=== PATIENT | female | born 1950 | race Caucasian/White ===

== ENCOUNTER → 2019-01-27 | Outpatient (CLI) | payer MEDICARE, OTHER ==
[~2019-01-27] MED LIST: ALPR0.25 PO; ASPI-231 PO; CHOL20009 PO; FOLI1TAB6 PO; FURO20TA3 PO; LISI-646 PO; METO25TA5 PO; ROSU5TAB5 PO
[2019-01-27 11:50] LABS: Basophils # (auto) 0 uL; Basophils % (auto) 0.6 % (0.0-2.0); Eosinophils # (auto) 0.2 uL; Eosinophils % (auto) 2.5 % (0.0-7.0); Hematocrit 50.6 % (36.0-46.0); Hemoglobin 16.7 g/dL (12.2-16.2); Lymphocytes # (auto) 2.1 uL; Lymphocytes % (auto) 30.4 % (10.0-50.0); Mean Corpuscular Hemoglobin 28.2 pg (28.0-32.0); Mean Corpuscular Volume 85.4 fL (80.0-100.0); Monocytes # (auto) 0.6 uL; Neutrophils # (auto) 3.9 uL; Neutrophils % (auto) 57.5 % (37.0-80.0); Nucleated Red Blood Cells % 0.1 %; Platelet Count (auto) 288 10^3/uL (140-450); Red Blood Cells 5.93 10^6/uL (4.0-5.20); Red Cell Distribution Width 14.7 % (11.8-14.3); White Blood Cell 6.9 10^3/uL (4.4-10.8)
[2019-01-27 13:15] LABS: Calcium 9.7 mg/dL (8.5-10.1); Potassium 4.5 mmol/L (3.5-5.1)
[2019-01-27 13:20] LABS: BUN/Creatinine Ratio 16.3; Bilirubin, Total 0.6 mg/dL (0.2-1.0); Total Protein 7.5 g/dL (6.4-8.2)
== END | disposition home or self-care (01) ==
LOC: LAB 11:13
PROVIDERS: ATTEND Internal Medicine
DX: Z12.11 Encounter for screening for malignant neoplasm of colon (principal); I10 Essential (primary) hypertension; E78.5 Hyperlipidemia, unspecified; R79.89 Other specified abnormal findings of blood chemistry; Z79.899 Other long term (current) drug therapy
CPT/HCPCS: 36415; 80053; 80061; 82274; 82306; 83036; 84443; 85025

== ENCOUNTER → 2019-07-19 | Outpatient (CLI) | payer MEDICARE, OTHER ==
[2019-07-19 10:48] LABS: Potassium 4.9 mmol/L (3.5-5.1)
[2019-07-19 10:49] LABS: Albumin 3.8 g/dL (3.4-5.0); Bilirubin, Total 0.7 mg/dL (0.2-1.0); Calcium 9.2 mg/dL (8.5-10.1)
== END | disposition home or self-care (01) ==
LOC: LAB 08:42
PROVIDERS: ATTEND Internal Medicine
DX: E78.5 Hyperlipidemia, unspecified (principal); I10 Essential (primary) hypertension
CPT/HCPCS: 36415; 80053; 80061

== ENCOUNTER → 2022-07-17 | Outpatient (CLI) | payer MEDICARE, OTHER ==
[~2022-07-17] MED LIST changes: -ASPI-231 PO; +ASPI1TAB20 PO; -LISI-646 PO; +LISI20TA28 PO
[2022-07-17 11:03] LABS: Basophils # (auto) 0 10 ^3/uL (0-0.2); Basophils % (auto) 0.5 % (0.0-2.0); Eosinophils # (auto) 0.3 10 ^3/uL (0-0.8); Eosinophils % (auto) 3.4 % (0.0-7.0); Hematocrit 49.3 % (36.0-46.0); Hemoglobin 16.2 g/dL (12.2-16.2); Lymphocytes # (auto) 1.9 10 ^3/uL (0.4-5.4); Mean Corpuscular Hemoglobin 28.5 pg (28.0-32.0); Mean Corpuscular Hgb Conc. 32.9 g/dL (32.0-36.0); Mean Corpuscular Volume 86.7 fL (80.0-100.0); Monocytes # (auto) 0.8 10 ^3/uL (0-1.3); Monocytes % (auto) 9.7 % (0.0-12.0); Neutrophils # (auto) 5.6 10 ^3/uL (1.6-8.6); Neutrophils % (auto) 64.4 % (37.0-80.0); Nucleated Red Blood Cells % 0.2 %; Red Blood Cells 5.68 10^6/uL (4.0-5.20); Red Cell Distribution Width 13.9 % (11.8-14.3); White Blood Cell 8.6 10^3/uL (4.4-10.8)
[2022-07-17 11:32] LABS: Albumin 3.5 g/dL (3.4-5.0); Calcium 9.3 mg/dL (8.5-10.1); Potassium 5.1 mmol/L (3.5-5.1)
[2022-07-17 11:38] LABS: BUN/Creatinine Ratio 13.1; Bilirubin, Total 0.5 mg/dL (0.2-1.0); Total Protein 6.7 g/dL (6.4-8.2)
== END | disposition home or self-care (01) ==
LOC: LAB 10:40
PROVIDERS: ATTEND Internal Medicine
DX: C50.919 Malignant neoplasm of unspecified site of unspecified female breast (principal); I10 Essential (primary) hypertension; Z12.11 Encounter for screening for malignant neoplasm of colon; Z00.00 Encounter for general adult medical examination without abnormal findings; Z83.3 Family history of diabetes mellitus; Z79.899 Other long term (current) drug therapy
CPT/HCPCS: 36415; 80053; 80061; 83036; 84439; 84443; 85025

== ENCOUNTER 2023-01-01 10:50 | Inpatient (IN) | payer MEDICARE, OTHER ==
[~2023-01-01] VITALS: Ht 162.6 cm; Wt 119.0 kg
[2023-01-01 12:27] LABS: Basophils # (auto) 0.1 10 ^3/uL (0-0.2); Basophils % (auto) 0.7 % (0.0-2.0); Eosinophils # (auto) 0.1 10 ^3/uL (0-0.8); Eosinophils % (auto) 1.9 % (0.0-7.0); Hematocrit 39.3 % (36.0-46.0); Hemoglobin 12.9 g/dL (12.2-16.2); Lymphocytes # (auto) 1.1 10 ^3/uL (0.4-5.4); Lymphocytes % (auto) 14.9 % (10.0-50.0); Mean Corpuscular Hemoglobin 28.8 pg (28.0-32.0); Mean Corpuscular Hgb Conc. 32.7 g/dL (32.0-36.0); Monocytes # (auto) 0.6 10 ^3/uL (0-1.3); Monocytes % (auto) 8.2 % (0.0-12.0); Neutrophils # (auto) 5.4 10 ^3/uL (1.6-8.6); Neutrophils % (auto) 74.3 % (37.0-80.0); Nucleated Red Blood Cells % 0.4 %; Red Blood Cells 4.47 10^6/uL (4.0-5.20); Red Cell Distribution Width 17.4 % (11.8-14.3); White Blood Cell 7.3 10^3/uL (4.4-10.8)
[2023-01-01 12:42] LABS: INR 1.04 (0.9-1.15); Partial Thromboplastin Time 37.8 sec (24.6-33.4)
[2023-01-01 13:07] LABS: Albumin 2.9 g/dL (3.4-5.0); BUN/Creatinine Ratio 16.9; Calcium 8.9 mg/dL (8.5-10.1); Potassium 4.4 mmol/L (3.5-5.1)
[2023-01-01 13:10] LABS: Bilirubin, Total 0.7 mg/dL (0.2-1.0); Total Protein 5.9 g/dL (6.4-8.2)
[2023-01-01 15:20] LABS: Urine Bacteria NONE SEEN /hpf (None Seen); Urine WBC 259 /hpf (0 - 5)
[2023-01-01] MEDS ORDERED: HYDROcodone-ACET 5/325MG TAB PO PRN (15:45)
[2023-01-01] MEDS ORDERED: PANTOPRAZOLE 40 MG/10 ML VIAL INJ IV ONE (15:45)
[2023-01-01 15:50] LABS: Urine WBC Clumps PRESENT /hpf (None Seen)
[2023-01-01 15:53] LABS: Urine Blood 3+ /uL (Negative)
[2023-01-01 16:15] LABS: Urine Specific Gravity 1.013 (1.001-1.035)
[2023-01-01 16:47] LABS: Cholesterol 171 mg/dL (< 200); HDL Cholesterol 59 mg/dL (40-59); LDL Cholesterol 88 mg/dL (< 100); Triglycerides 220 mg/dL (< 150)
[2023-01-01] MEDS: ACETAMINOPHEN 325 MG TAB PO PRN (20:49)
[2023-01-01] MEDS: ONDANSETRON HCL 4 MG/2 ML VIAL IV PRN (20:49)
[2023-01-01] MEDS: FOLIC ACID 1 MG TAB PO SCH (23:21)
[2023-01-01] MEDS: METOPROLOL TARTRATE 25 MG TAB PO SCH (23:22)
[2023-01-02] VITALS (8 sets, daily range): BP systolic 112–155; BP diastolic 58–73
[2023-01-02 03:15] LABS: Basophils # (auto) 0 10 ^3/uL (0-0.2); Basophils % (auto) 0.6 % (0.0-2.0); Eosinophils # (auto) 0.1 10 ^3/uL (0-0.8); Eosinophils % (auto) 2.3 % (0.0-7.0); Hematocrit 36.2 % (36.0-46.0); Hemoglobin 11.8 g/dL (12.2-16.2); Lymphocytes # (auto) 0.9 10 ^3/uL (0.4-5.4); Lymphocytes % (auto) 18.2 % (10.0-50.0); Mean Corpuscular Hemoglobin 28.8 pg (28.0-32.0); Mean Corpuscular Hgb Conc. 32.7 g/dL (32.0-36.0); Monocytes # (auto) 0.5 10 ^3/uL (0-1.3); Monocytes % (auto) 10.2 % (0.0-12.0); Neutrophils # (auto) 3.3 10 ^3/uL (1.6-8.6); Neutrophils % (auto) 68.7 % (37.0-80.0); Nucleated Red Blood Cells % 0.1 %; Red Blood Cells 4.11 10^6/uL (4.0-5.20); Red Cell Distribution Width 17.1 % (11.8-14.3); White Blood Cell 4.8 10^3/uL (4.4-10.8)
[2023-01-02 08:55] LABS: Hematocrit 37.2 % (36.0-46.0); Mean Corpuscular Hemoglobin 28.4 pg (28.0-32.0); Mean Corpuscular Hgb Conc. 32.4 g/dL (32.0-36.0); Mean Corpuscular Volume 87.9 fL (80.0-100.0); Red Blood Cells 4.23 10^6/uL (4.0-5.20); Red Cell Distribution Width 17.2 % (11.8-14.3); White Blood Cell 4.9 10^3/uL (4.4-10.8)
[2023-01-02 09:03] LABS: Basophils % (manual) 0 (0.0-2.0); Blast Cells 0; Metamyelocytes % 0; Promyelocytes % 0; Reactive Lymphocytes 0
[2023-01-02 09:13] LABS: Albumin 2.6 g/dL (3.4-5.0); Calcium 8.4 mg/dL (8.5-10.1); Potassium 4.5 mmol/L (3.5-5.1)
[2023-01-02 09:16] LABS: BUN/Creatinine Ratio 11.6; Bilirubin, Total 0.6 mg/dL (0.2-1.0); Total Protein 5.2 g/dL (6.4-8.2)
[2023-01-02 09:58] LABS: Band Neutrophils % (manual) 2; Eosinophils % (manual) 3 (0-7); Lymphocytes % (manual) 19 (10.0-50.0); Monocytes % (manual) 3 (0-12); Myelocytes % 2
[2023-01-02] MEDS: ALPRAZolam 0.25 MG TAB PO SCH (10:00)
[2023-01-02] MEDS: PANTOPRAZOLE 40 MG/10 ML VIAL INJ IV SCH (10:38)
[2023-01-02] MEDS: ATORVASTATIN 20 MG TAB PO SCH (10:38)
[2023-01-02] MEDS: CHOLECALCIFEROL (VITD3) 2,000 UNIT CAP/TAB PO SCH (10:39)
[2023-01-02] MEDS: LISINOPRIL 20 MG TAB PO SCH (10:39)
[2023-01-02] MEDS: METOPROLOL TARTRATE 25 MG TAB PO SCH ×2 (10:39→21:52)
[2023-01-02] MEDS: FOLIC ACID 1 MG TAB PO SCH ×2 (10:40→21:51)
[2023-01-02] MEDS ORDERED: cefTRIAXone 1GM/50ML D5W 50 ML IV ONE (12:30)
[2023-01-02] MEDS ORDERED: ALBUTEROL SULF 2.5 MG/0.5ML(0.5%) NEB SOLN NEB PRN (12:30)
[2023-01-02] MEDS: SODIUM CHLORIDE 0.9% 1,000 ML IV SCH (15:03)
[2023-01-02] MEDS ORDERED: LEVOTHYROXINE SODIUM 25 MCG TAB PO ONE (15:15)
[2023-01-02] MEDS: ACETAMINOPHEN 325 MG TAB PO PRN (16:10)
[2023-01-02] MEDS: metroNIDAZOLE 500MG/100ML 100 ML IV SCH ×2 (17:41→21:50)
[2023-01-02 18:36] LABS: Urine Bacteria FEW /hpf (None Seen); Urine Blood 3+ /uL (Negative); Urine Specific Gravity 1.004 (1.001-1.035); Urine WBC 3 /hpf (0 - 5)
[2023-01-03] MEDS: ACETAMINOPHEN 325 MG TAB PO PRN ×2 (01:24→13:16)
[2023-01-03] MEDS: SODIUM CHLORIDE 0.9% 1,000 ML IV SCH (01:50)
[2023-01-03 05:00] VITALS: BP 120/78
[2023-01-03 05:25] LABS: Basophils # (auto) 0 10 ^3/uL (0-0.2); Basophils % (auto) 0.4 % (0.0-2.0); Eosinophils # (auto) 0.1 10 ^3/uL (0-0.8); Eosinophils % (auto) 2.5 % (0.0-7.0); Hematocrit 34.8 % (36.0-46.0); Hemoglobin 11.2 g/dL (12.2-16.2); Lymphocytes # (auto) 0.8 10 ^3/uL (0.4-5.4); Lymphocytes % (auto) 16.3 % (10.0-50.0); Mean Corpuscular Hemoglobin 28.4 pg (28.0-32.0); Mean Corpuscular Hgb Conc. 32.3 g/dL (32.0-36.0); Mean Corpuscular Volume 88.1 fL (80.0-100.0); Monocytes # (auto) 0.5 10 ^3/uL (0-1.3); Monocytes % (auto) 9.6 % (0.0-12.0); Neutrophils # (auto) 3.6 10 ^3/uL (1.6-8.6); Neutrophils % (auto) 71.2 % (37.0-80.0); Nucleated Red Blood Cells % 0.1 %; Red Blood Cells 3.95 10^6/uL (4.0-5.20); Red Cell Distribution Width 17.5 % (11.8-14.3); White Blood Cell 5.1 10^3/uL (4.4-10.8)
[2023-01-03 05:36] LABS: Potassium 4.1 mmol/L (3.5-5.1)
[2023-01-03 05:47] LABS: Albumin 2.5 g/dL (3.4-5.0); BUN/Creatinine Ratio 14.8; Calcium 8.4 mg/dL (8.5-10.1)
[2023-01-03] MEDS: metroNIDAZOLE 500MG/100ML 100 ML IV SCH ×3 (06:06→22:08)
[2023-01-03] MEDS: LEVOTHYROXINE SODIUM 25 MCG TAB PO SCH (06:09)
[2023-01-03 06:11] LABS: Bilirubin, Total 0.5 mg/dL (0.2-1.0); Total Protein 5.1 g/dL (6.4-8.2)
[2023-01-03 09:00] VITALS: BP 137/54
[2023-01-03] MEDS: ALPRAZolam 0.25 MG TAB PO SCH (10:00)
[2023-01-03] MEDS: PANTOPRAZOLE 40 MG/10 ML VIAL INJ IV SCH (11:03)
[2023-01-03] MEDS: cefTRIAXone 1GM/50ML D5W 50 ML IV SCH (11:04)
[2023-01-03] MEDS: CHOLECALCIFEROL (VITD3) 2,000 UNIT CAP/TAB PO SCH (11:04)
[2023-01-03] MEDS: LISINOPRIL 20 MG TAB PO SCH (11:05)
[2023-01-03] MEDS: FOLIC ACID 1 MG TAB PO SCH ×2 (11:05→22:08)
[2023-01-03] MEDS: ATORVASTATIN 20 MG TAB PO SCH (11:06)
[2023-01-03] MEDS: METOPROLOL TARTRATE 25 MG TAB PO SCH ×2 (11:06→22:09)
[2023-01-03 13:00] VITALS: BP 154/70
[2023-01-03] MEDS: ONDANSETRON HCL 4 MG/2 ML VIAL IV PRN (13:19)
[2023-01-03 17:00] VITALS: BP 128/48
[2023-01-03] MEDS: LACTULOSE 20Gm/30ML SOLN PO PRN (17:23)
[2023-01-03 22:00] VITALS: BP 140/59
[2023-01-03] MEDS: DOCUSATE SOD 100 MG CAP PO SCH (22:08)
[2023-01-04] VITALS (10 sets, daily range): BP systolic 106–157; BP diastolic 55–67
[2023-01-04] MEDS: ONDANSETRON HCL 4 MG/2 ML VIAL IV PRN ×2 (01:58→21:44)
[2023-01-04] MEDS: ACETAMINOPHEN 325 MG TAB PO PRN (02:05)
[2023-01-04] MEDS: metroNIDAZOLE 500MG/100ML 100 ML IV SCH ×3 (05:52→21:36)
[2023-01-04] MEDS: LEVOTHYROXINE SODIUM 25 MCG TAB PO SCH (05:52)
[2023-01-04 08:52] LABS: Free T3 2.23 pg/mL (2.3-4.2); Free T4 (Free Thyroxine) 0.84 ng/dL (0.89-1.76)
[2023-01-04] MEDS: cefTRIAXone 1GM/50ML D5W 50 ML IV SCH ×2 (09:00→10:00)
[2023-01-04] MEDS: DOCUSATE SOD 100 MG CAP PO SCH ×2 (10:01→21:36)
[2023-01-04] MEDS: CHOLECALCIFEROL (VITD3) 2,000 UNIT CAP/TAB PO SCH (10:01)
[2023-01-04] MEDS: ALPRAZolam 0.25 MG TAB PO SCH (10:01)
[2023-01-04] MEDS: LISINOPRIL 20 MG TAB PO SCH (10:01)
[2023-01-04] MEDS: METOPROLOL TARTRATE 25 MG TAB PO SCH ×2 (10:02→21:36)
[2023-01-04] MEDS: ATORVASTATIN 20 MG TAB PO SCH (10:02)
[2023-01-04] MEDS: FOLIC ACID 1 MG TAB PO SCH ×2 (10:02→21:36)
[2023-01-04] MEDS ORDERED: POTASSIUM CHL 10 Meq TABLET PO ONE (11:15)
[2023-01-04] MEDS ORDERED: FUROSEMIDE 20 MG/2 ML VIAL IV ONE (11:15)
[2023-01-04] MEDS ORDERED: LIDOCAINE 2%HCL (LOCAL ANESTH.) INJ 10ml MDV ONE (16:43)
[2023-01-04] MEDS ORDERED: MIDAZOLAM HCL 2MG/2ML 2ml VIAL (1mg/ml) ONE (16:45)
[2023-01-04] MEDS ORDERED: fentaNYL CITRATE 100 MCG/2 ML VL ONE (16:45)
[2023-01-05] VITALS (8 sets, daily range): BP systolic 100–141; BP diastolic 47–63
[2023-01-05] MEDS: metroNIDAZOLE 500MG/100ML 100 ML IV SCH (05:32)
[2023-01-05 06:00] LABS: BUN/Creatinine Ratio 11.3; Calcium 8.4 mg/dL (8.5-10.1)
[2023-01-05 06:10] LABS: Basophils # (auto) 0 10 ^3/uL (0-0.2); Basophils % (auto) 0.6 % (0.0-2.0); Eosinophils # (auto) 0.1 10 ^3/uL (0-0.8); Eosinophils % (auto) 1.7 % (0.0-7.0); Hematocrit 35.1 % (36.0-46.0); Hemoglobin 11.6 g/dL (12.2-16.2); Lymphocytes % (auto) 16.9 % (10.0-50.0); Mean Corpuscular Hemoglobin 29.3 pg (28.0-32.0); Mean Corpuscular Hgb Conc. 33.2 g/dL (32.0-36.0); Mean Corpuscular Volume 88.3 fL (80.0-100.0); Monocytes # (auto) 0.7 10 ^3/uL (0-1.3); Monocytes % (auto) 11.5 % (0.0-12.0); Neutrophils # (auto) 4.3 10 ^3/uL (1.6-8.6); Neutrophils % (auto) 69.3 % (37.0-80.0); Nucleated Red Blood Cells % 0.9 %; Red Blood Cells 3.97 10^6/uL (4.0-5.20); Red Cell Distribution Width 17.7 % (11.8-14.3); White Blood Cell 6.2 10^3/uL (4.4-10.8)
[2023-01-05] MEDS: LEVOTHYROXINE SODIUM 50 MCG TAB PO SCH (06:11)
[2023-01-05] MEDS: cefTRIAXone 1GM/50ML D5W 50 ML IV SCH (09:07)
[2023-01-05] MEDS: POTASSIUM CHL 10 Meq TABLET PO SCH (09:08)
[2023-01-05] MEDS: CHOLECALCIFEROL (VITD3) 2,000 UNIT CAP/TAB PO SCH (09:08)
[2023-01-05] MEDS: ATORVASTATIN 20 MG TAB PO SCH (09:08)
[2023-01-05] MEDS: FOLIC ACID 1 MG TAB PO SCH ×2 (09:08→21:26)
[2023-01-05] MEDS: DOCUSATE SOD 100 MG CAP PO SCH ×2 (09:08→21:26)
[2023-01-05] MEDS: ALPRAZolam 0.25 MG TAB PO SCH ×2 (09:09→09:20)
[2023-01-05] MEDS: METOPROLOL TARTRATE 25 MG TAB PO SCH ×2 (09:09→21:27)
[2023-01-05] MEDS: LISINOPRIL 20 MG TAB PO SCH (09:10)
[2023-01-05] MEDS: FUROSEMIDE 20 MG/2 ML VIAL IV SCH (09:10)
[2023-01-05] MEDS: metroNIDAZOLE 500 MG TAB PO SCH ×2 (14:04→21:28)
[2023-01-05] MEDS: ONDANSETRON HCL 4 MG/2 ML VIAL IV PRN (18:56)
[2023-01-05] MEDS: ACETAMINOPHEN 325 MG TAB PO PRN (21:28)
[2023-01-06] MEDS: ACETAMINOPHEN 325 MG TAB PO PRN (04:24)
[2023-01-06 05:00] VITALS: BP 107/35
[2023-01-06 05:50] LABS: Basophils # (auto) 0 10 ^3/uL (0-0.2); Basophils % (auto) 0.7 % (0.0-2.0); Eosinophils # (auto) 0.1 10 ^3/uL (0-0.8); Eosinophils % (auto) 2.9 % (0.0-7.0); Hematocrit 34.3 % (36.0-46.0); Hemoglobin 11.3 g/dL (12.2-16.2); Lymphocytes # (auto) 1.1 10 ^3/uL (0.4-5.4); Lymphocytes % (auto) 20.8 % (10.0-50.0); Mean Corpuscular Hgb Conc. 32.8 g/dL (32.0-36.0); Mean Corpuscular Volume 88.2 fL (80.0-100.0); Monocytes # (auto) 0.7 10 ^3/uL (0-1.3); Monocytes % (auto) 12.8 % (0.0-12.0); Neutrophils # (auto) 3.3 10 ^3/uL (1.6-8.6); Neutrophils % (auto) 62.8 % (37.0-80.0); Nucleated Red Blood Cells % 0.2 %; Red Blood Cells 3.88 10^6/uL (4.0-5.20); Red Cell Distribution Width 17.7 % (11.8-14.3); White Blood Cell 5.2 10^3/uL (4.4-10.8)
[2023-01-06] MEDS: LEVOTHYROXINE SODIUM 50 MCG TAB PO SCH (06:00)
[2023-01-06] MEDS: metroNIDAZOLE 500 MG TAB PO SCH ×3 (06:00→21:33)
[2023-01-06 06:05] LABS: BUN/Creatinine Ratio 11.9; Calcium 8.5 mg/dL (8.5-10.1)
[2023-01-06 08:59] VITALS: BP 130/60
[2023-01-06] MEDS: cefTRIAXone 1GM/50ML D5W 50 ML IV SCH (09:13)
[2023-01-06] MEDS: ATORVASTATIN 20 MG TAB PO SCH (09:14)
[2023-01-06] MEDS: FOLIC ACID 1 MG TAB PO SCH ×2 (09:14→21:32)
[2023-01-06] MEDS: ALPRAZolam 0.25 MG TAB PO SCH (09:14)
[2023-01-06] MEDS: POTASSIUM CHL 10 Meq TABLET PO SCH (09:14)
[2023-01-06] MEDS: DOCUSATE SOD 100 MG CAP PO SCH ×2 (09:14→21:32)
[2023-01-06] MEDS: FUROSEMIDE 20 MG/2 ML VIAL IV SCH (09:14)
[2023-01-06] MEDS: LISINOPRIL 20 MG TAB PO SCH (09:17)
[2023-01-06] MEDS: METOPROLOL TARTRATE 25 MG TAB PO SCH ×2 (09:17→21:34)
[2023-01-06] MEDS: CHOLECALCIFEROL (VITD3) 2,000 UNIT CAP/TAB PO SCH (09:17)
[2023-01-06] MEDS: LACTULOSE 20Gm/30ML SOLN PO PRN (10:54)
[2023-01-06 12:30] VITALS: BP 114/63
[2023-01-06 16:36] VITALS: BP 100/50
[2023-01-06 20:00] VITALS: BP 121/77
[2023-01-06 22:00] VITALS: BP 116/52
[2023-01-07 05:00] VITALS: BP 121/47
[2023-01-07] MEDS: metroNIDAZOLE 500 MG TAB PO SCH ×3 (05:08→21:51)
[2023-01-07] MEDS: LEVOTHYROXINE SODIUM 50 MCG TAB PO SCH (06:15)
[2023-01-07 08:25] VITALS: BP 125/65
[2023-01-07] MEDS: LACTULOSE 20Gm/30ML SOLN PO PRN (09:47)
[2023-01-07] MEDS: METOPROLOL TARTRATE 25 MG TAB PO SCH ×2 (09:48→21:52)
[2023-01-07] MEDS: FOLIC ACID 1 MG TAB PO SCH ×2 (09:48→21:51)
[2023-01-07] MEDS: POTASSIUM CHL 10 Meq TABLET PO SCH (09:48)
[2023-01-07] MEDS: CHOLECALCIFEROL (VITD3) 2,000 UNIT CAP/TAB PO SCH (09:48)
[2023-01-07] MEDS: ATORVASTATIN 20 MG TAB PO SCH (09:48)
[2023-01-07] MEDS: ALPRAZolam 0.25 MG TAB PO SCH (09:48)
[2023-01-07] MEDS: FUROSEMIDE 20 MG/2 ML VIAL IV SCH (09:49)
[2023-01-07] MEDS: cefTRIAXone 1GM/50ML D5W 50 ML IV SCH (09:49)
[2023-01-07] MEDS: LISINOPRIL 20 MG TAB PO SCH (09:52)
[2023-01-07] MEDS: DOCUSATE SOD 100 MG CAP PO SCH ×2 (10:00→21:51)
[2023-01-07 12:05] VITALS: BP 124/74
[2023-01-07 16:10] VITALS: BP 112/66
[2023-01-07 20:00] VITALS: BP 141/60
[2023-01-07 22:00] VITALS: BP 141/60
[2023-01-08 05:00] VITALS: BP 107/56
[2023-01-08] MEDS: metroNIDAZOLE 500 MG TAB PO SCH ×2 (05:26→14:00)
[2023-01-08] MEDS: LEVOTHYROXINE SODIUM 50 MCG TAB PO SCH (06:18)
[2023-01-08] MEDS: cefTRIAXone 1GM/50ML D5W 50 ML IV SCH (08:32)
[2023-01-08] MEDS: ALPRAZolam 0.25 MG TAB PO SCH (08:34)
[2023-01-08] MEDS: FUROSEMIDE 20 MG/2 ML VIAL IV SCH (08:34)
[2023-01-08] MEDS: LISINOPRIL 20 MG TAB PO SCH (08:36)
[2023-01-08] MEDS: CHOLECALCIFEROL (VITD3) 2,000 UNIT CAP/TAB PO SCH (08:36)
[2023-01-08] MEDS: FOLIC ACID 1 MG TAB PO SCH (08:36)
[2023-01-08] MEDS: POTASSIUM CHL 10 Meq TABLET PO SCH (08:37)
[2023-01-08] MEDS: METOPROLOL TARTRATE 25 MG TAB PO SCH (08:37)
[2023-01-08] MEDS: DOCUSATE SOD 100 MG CAP PO SCH (08:38)
[2023-01-08 09:00] VITALS: BP 102/51
[2023-01-08] MEDS: ATORVASTATIN 20 MG TAB PO SCH (09:01)
[2023-01-08 13:00] VITALS: BP 119/69
[2023-01-08 13:36] VITALS: BP 102/51
[2023-01-08 13:58] VITALS: BP 102/51
== END 2023-01-08 15:30 | DRG 377 ==
LOC: ER 10:50 → EDBD 10:50 → OVERFLOW 15:41 → EAST 21:23
PROVIDERS: ADMIT Nurse Practitioner Family; ATTEND Internal Medicine
PROC: 06H03DZ Insertion of Intraluminal Device into Inferior Vena Cava, Percutaneous Approach (ICD-10-PCS; principal; 2023-01-04)
DX: K92.2 Gastrointestinal hemorrhage, unspecified (principal); I50.31 Acute diastolic (congestive) heart failure; D68.32 Hemorrhagic disorder due to extrinsic circulating anticoagulants; I82.402 Acute embolism and thrombosis of unspecified deep veins of left lower extremity; N39.0 Urinary tract infection, site not specified; E87.1 Hypo-osmolality and hyponatremia; J96.10 Chronic respiratory failure, unspecified whether with hypoxia or hypercapnia; N17.9 Acute kidney failure, unspecified; Z68.42 Body mass index [BMI] 45.0-49.9, adult; E44.0 Moderate protein-calorie malnutrition; D68.9 Coagulation defect, unspecified; E11.9 Type 2 diabetes mellitus without complications; Z20.822 Contact with and (suspected) exposure to COVID-19; E78.5 Hyperlipidemia, unspecified; D69.6 Thrombocytopenia, unspecified; E03.9 Hypothyroidism, unspecified; E66.01 Morbid (severe) obesity due to excess calories; E87.8 Other disorders of electrolyte and fluid balance, not elsewhere classified; Z87.891 Personal history of nicotine dependence; Z90.710 Acquired absence of both cervix and uterus; Z95.828 Presence of other vascular implants and grafts; Z82.49 Family history of ischemic heart disease and other diseases of the circulatory system; Z79.82 Long term (current) use of aspirin; C50.919 Malignant neoplasm of unspecified site of unspecified female breast; I11.0 Hypertensive heart disease with heart failure; R31.9 Hematuria, unspecified; T45.515A Adverse effect of anticoagulants, initial encounter
CPT/HCPCS: 36415; 37191; 37619; 71045; 74176; 76775; 80048; 80053; 80061; 81001; 83036; 83880; 84439; 84443; 84481; 84484; 85007; 85025; 85027; 85610; 85730; 86850; 86900; 86901; 87070; 87086; 87205; 87426; 93005; 93306; 93970; 94640; 96374; 96375; 97110; 97116; 97163; 97530; 99152; C9113; G0378; J0696; J2001; J2250; J2405; J3490